=== PATIENT | male | born 1955 | race Caucasian/White ===

== ENCOUNTER 2017-02-28 12:54 | Inpatient (IN) | payer MEDICARE ==
--- NOTE | 2017-02-28 13:10 | ED ---
General Adult HPI - General Chief complaint: Weakness Stated complaint: weakness Time Seen by Provider: 02/28/17 13:02 Source: patient, RN notes reviewed Mode of arrival: EMS Limitations: no limitations - History of Present Illness Initial comments: Patient is a pleasant [age]-year-old male presenting to the emergency department with fatigue and weakness. Patient states he does have a history of Parkinson's however this is worse than normal. Patient states he feels weak all over. Patient states weakness is mostly of the legs. Patient is unable to stand up or walk on his own. Patient is a poor historian and states he wishes his family was here. No fever. No pain. Patient states at times he does get confused. - Related Data Home Medications Medication Instructions Recorded Confirmed ALPRAZolam 1 mg PO BID 04/21/14 02/28/17 Ibuprofen [Motrin] 800 mg PO BID 04/21/14 02/28/17 PARoxetine HCL 40 mg PO DAILY 04/21/14 02/28/17 Propranolol HCl [Propranolol HCl 120 mg PO DAILY 04/21/14 02/28/17 ER] amLODIPine BESYLATE/BENAZEPRIL 1 each PO DAILY 04/21/14 02/28/17 [Amlodipine-Benazepril 5-20 mg] Baclofen [Lioresal] 20 mg PO BID@0600,1430 02/28/17 02/28/17 Carbidopa-Levodopa 25-100 mg 1 tab PO QID 02/28/17 02/28/17 [Sinemet 25-100] Cholecalciferol [Vitamin D3] 5,000 unit PO DAILY 02/28/17 02/28/17 Docusate [Colace] 200 mg PO BID 02/28/17 02/28/17 Donepezil [Aricept] 10 mg PO HS 02/28/17 02/28/17 Fluticasone Nasal [place] [Flonase 2 spr EA NOSTRIL DAILY 02/28/17 02/28/17 Nasal [place]] Deysi Root 550mg 1,650 mg PO DAILY PRN 02/28/17 02/28/17 HYDROcodone/APAP 10-325MG [[place] 1 tab PO QID 02/28/17 02/28/17 10-325] LORazepam [Ativan] 0.5 mg PO Q6H PRN 02/28/17 02/28/17 Lactobacillus Acidophilus 1 tab PO DAILY 02/28/17 02/28/17 [Acidophilus] Loratadine [Claritin] 10 mg PO DAILY 02/28/17 02/28/17 Magnesium Oxide [Mag-Ox] 400 mg PO DAILY 02/28/17 02/28/17 Memantine HCl [Namenda Xr] 28 mg PO DAILY 02/28/17 02/28/17 Montelukast [Singulair] 10 mg PO HS 02/28/17 02/28/17 Multivitamins, Thera [Multivitamin 1 tab PO DAILY 02/28/17 02/28/17 (formulary)] PARoxetine [Paxil] 20 mg PO HS 02/28/17 02/28/17 Papaya [Papaya Enzyme] 4 tab PO DAILY 02/28/17 02/28/17 Polyethylene Glycol 3350 [Miralax] 17 gm PO DAILY 02/28/17 02/28/17 Pyridostigmine [Mestinon] 60 mg PO TID@0700,1100,1600 02/28/17 02/28/17 QUEtiapine [SEROquel] 25 mg PO BID@0600,1430 02/28/17 02/28/17 QUEtiapine [SEROquel] 50 mg PO HS 02/28/17 02/28/17 Triamterene-Hctz 37.5-25Mg 1 cap PO DAILY 02/28/17 02/28/17 [Dyazide 37.5-25 Capsule] Allergies Allergy/AdvReac Type Severity Reaction Status Date / Time Penicillins Allergy Rash/Hives Verified 02/28/17 14:18 Review of Systems ROS Statement: Those systems with pertinent positive or pertinent negative responses have been documented in the HPI. ROS Other: All systems not noted in ROS Statement are negative. Constitutional: Denies: fever Eyes: Denies: eye pain ENT: Denies: ear pain Respiratory: Denies: cough Cardiovascular: Denies: chest pain Endocrine: Reports: fatigue Gastrointestinal: Denies: abdominal pain Genitourinary: Denies: dysuria Musculoskeletal: Reports: back pain (Chronic and unchanged. Patient has spinal stenosis.) Skin: Denies: rash Neurological: Reports: weakness, confusion. Denies: headache Past Medical History Past Medical History: Dementia, Hypertension, Memory Impairment, Prostate Disorder Additional Past Medical History / Comment(s): parkinsons ddd,drop foot r, MS History of Any Multi-Drug Resistant Organisms: None Reported Past Surgical History: Back Surgery, Cholecystectomy, Tonsillectomy Additional Past Surgical History / Comment(s): numerous back surg, Past Anesthesia/Blood Transfusion Reactions: No Reported Reaction Past Psychological History: Depression Smoking Status: Former smoker Past Alcohol Use History: None Reported Past Drug Use History: None Reported General Exam Limitations: no limitations General appearance: alert, in no apparent distress Head exam: Present: atraumatic Eye exam: Present: normal appearance, PERRL ENT exam: Present: normal oropharynx Neck exam: Present: normal inspection Respiratory exam: Present: normal lung sounds bilaterally Cardiovascular Exam: Present: regular rate, normal rhythm Expanded Peripheral pulses: 2+: Radial (R), Radial (L), Posterior Tibialis (R), Posterior Tibialis (L) GI/Abdominal exam: Present: soft. Absent: tenderness Extremities exam: Present: normal inspection. Absent: pedal edema, calf tenderness Neurological exam: Present: alert, altered, CN II-XII intact Expanded Patient oriented to: Present: person, place. Absent: time Motor strength exam: RUE: 4, LUE: 5, RLE: 2/1, LLE: 2/1 Psychiatric exam: Present: flat affect Skin exam: Present: normal color Course Vital Signs 02/28/17 02/28/17 02/28/17 12:56 14:01 15:10 Temperature 98.4 F 98.5 F Pulse Rate 67 67 67 Respiratory 18 20 14 Rate Blood Pressure 135/85 134/85 117/73 O2 Sat by Pulse 94 L 95 95 Oximetry EKG Findings - EKG Comments: EKG Findings:: Normal sinus rhythm 61. HI 160. QRS 140. QTc 444. QTC 446. Left axis. Right bundle branch block. No acute ST change. Medical Decision Making - Medical Decision Making Patient reexamined and resting comfortably in bed. adds additional history stating generalized weakness worse today. She states symptoms are similar to previous urinary tract infection. Patient did have culture done from Tuesday showing good rhythm 100,000 Providencia stuartii . Sensitivity is still pending. This was done at [facility]. Case was discussed with Dr. Grijalva, who will admit his patient. Patient and family were updated on results and plan. - Lab Data Result diagrams: 02/28/17 13:18 02/28/17 13:18 Lab Results 02/28/17 02/28/17 02/28/17 Range/Units 13:18 13:18 13:18 WBC 8.0 (3.8-10.6) k/uL RBC 4.36 (4.30-5.90) m/uL Hgb 13.5 (13.0-17.5) gm/dL Hct 41.6 (39.0-53.0) % MCV 95.2 (80.0-100.0) fL MCH 30.9 (25.0-35.0) pg MCHC 32.5 (31.0-37.0) g/dL RDW 13.9 (11.5-15.5) % Plt Count 473 H (150-450) k/uL Neutrophils % 56 % Lymphocytes % 29 % Monocytes % 7 % Eosinophils % 5 % Basophils % 1 % Neutrophils # 4.5 (1.3-7.7) k/uL Lymphocytes # 2.3 (1.0-4.8) k/uL Monocytes # 0.5 (0-1.0) k/uL Eosinophils # 0.4 (0-0.7) k/uL Basophils # 0.1 (0-0.2) k/uL PT (9.0-12.0) sec INR (<1.2) APTT (22.0-30.0) sec Sodium 143 (137-145) mmol/L Potassium 4.6 (3.5-5.1) mmol/L Chloride 107 (98-107) mmol/L Carbon Dioxide 31 H (22-30) mmol/L Anion Gap 5 mmol/L BUN 21 H (9-20) mg/dL Creatinine 0.66 (0.66-1.25) mg/dL Est GFR (MDRD) Af Amer >60 (>60 ml/min/1.73 sqM) Est GFR (MDRD) Non-Af >60 (>60 ml/min/1.73 sqM) Glucose 88 (74-99) mg/dL Calcium 9.5 (8.4-10.2) mg/dL Phosphorus 4.1 (2.5-4.5) mg/dL Magnesium 2.2 (1.6-2.3) mg/dL Total Bilirubin 0.5 (0.2-1.3) mg/dL AST 45 (17-59) U/L ALT 21 (21-72) U/L Alkaline Phosphatase 64 (38-126) U/L Total Creatine Kinase 54 L (55-170) U/L CK-MB (CK-2) 1.2 (0.0-2.4) ng/mL CK-MB (CK-2) Rel Index 2.2 Troponin I <0.012 (0.000-0.034) ng/mL Total Protein 6.5 (6.3-8.2) g/dL Albumin 3.8 (3.5-5.0) g/dL TSH 1.870 (0.465-4.680) mIU/L Free T4 1.03 (0.78-2.19) ng/dL Free T3 pg/mL 3.3 (2.8-5.3) pg/ml 02/28/17 Range/Units 13:18 WBC (3.8-10.6) k/uL RBC (4.30-5.90) m/uL Hgb (13.0-17.5) gm/dL Hct (39.0-53.0) % MCV (80.0-100.0) fL MCH (25.0-35.0) pg MCHC (31.0-37.0) g/dL RDW (11.5-15.5) % Plt Count (150-450) k/uL Neutrophils % % Lymphocytes % % Monocytes % % Eosinophils % % Basophils % % Neutrophils # (1.3-7.7) k/uL Lymphocytes # (1.0-4.8) k/uL Monocytes # (0-1.0) k/uL Eosinophils # (0-0.7) k/uL Basophils # (0-0.2) k/uL PT 10.8 (9.0-12.0) sec INR 1.1 (<1.2) APTT 27.2 (22.0-30.0) sec Sodium (137-145) mmol/L Potassium (3.5-5.1) mmol/L Chloride (98-107) mmol/L Carbon Dioxide (22-30) mmol/L Anion Gap mmol/L BUN (9-20) mg/dL Creatinine (0.66-1.25) mg/dL Est GFR (MDRD) Af Amer (>60 ml/min/1.73 sqM) Est GFR (MDRD) Non-Af (>60 ml/min/1.73 sqM) Glucose (74-99) mg/dL Calcium (8.4-10.2) mg/dL Phosphorus (2.5-4.5) mg/dL Magnesium (1.6-2.3) mg/dL Total Bilirubin (0.2-1.3) mg/dL AST (17-59) U/L ALT (21-72) U/L Alkaline Phosphatase (38-126) U/L Total Creatine Kinase (55-170) U/L CK-MB (CK-2) (0.0-2.4) ng/mL CK-MB (CK-2) Rel Index Troponin I (0.000-0.034) ng/mL Total Protein (6.3-8.2) g/dL Albumin (3.5-5.0) g/dL TSH (0.465-4.680) mIU/L Free T4 (0.78-2.19) ng/dL Free T3 pg/mL (2.8-5.3) pg/ml - Radiology Data Radiology results: image reviewed (Chest x-ray shows some probable atelectasis. Computed tomography scan the brain shows no acute intercranial process. Mild generalized swelling matter ischemic change.) Disposition Clinical Impression: General weakness, Urinary tract infection Disposition: ADMITTED IP TO THIS [facility] Referrals: Morgan Grijalva DO [Primary Care Provider] - 1-2 days Decision Time: 15:49
[2017-02-28 13:33] LABS: Basophils # (A) 0.1 k/uL (0-0.2); Basophils % (A) 1 %; CH 31.1; CHCM 32.8; Eosinophils # (A) 0.4 k/uL (0-0.7); Eosinophils % (A) 5 %; HCT 41.6 % (39.0-53.0); HDW 2.44; HGB 13.5 gm/dL (13.0-17.5); Luc # (Auto) 0.22; Luc % (Auto) 3; Lymphocytes # (A) 2.3 k/uL (1.0-4.8); Lymphocytes % (A) 29 %; MCH 30.9 pg (25.0-35.0); MCHC 32.5 g/dL (31.0-37.0); MCV 95.2 fL (80.0-100.0); Mean Platelet Volume 7.3; Monocytes # (A) 0.5 k/uL (0-1.0); Monocytes % (A) 7 %; Neutrophils # (A) 4.5 k/uL (1.3-7.7); Neutrophils % (A) 56 %; RBC 4.36 m/uL (4.30-5.90); RDW 13.9 % (11.5-15.5); WBC (Perox) 7.76
[2017-02-28 13:41] LABS: INR 1.1 (<1.2); Partial Thromboplastin Time 27.2 sec (22.0-30.0); Prothrombin Time 10.8 sec (9.0-12.0)
[2017-02-28 13:47] LABS: ALT 21 U/L (21-72); AST 45 U/L (17-59); Alkaline Phosphatase 64 U/L (38-126); Anion Gap 5 mmol/L; Blood Urea Nitrogen 21 mg/dL (9-20); Calcium 9.5 mg/dL (8.4-10.2); Carbon Dioxide 31 mmol/L (22-30); Chloride 107 mmol/L (98-107); Glucose 88 mg/dL (74-99); Magnesium 2.2 mg/dL (1.6-2.3); Non-African American GFR(MDRD) >60 (>60 ml/min/1.73 sqM); Phosphorous 4.1 mg/dL (2.5-4.5); Potassium 4.6 mmol/L (3.5-5.1); Sodium 143 mmol/L (137-145); Total Bilirubin 0.5 mg/dL (0.2-1.3); Total Protein 6.5 g/dL (6.3-8.2)
--- NOTE | 2017-02-28 14:15 | CT ---
EXAMINATION TYPE: CT brain wo con DATE OF EXAM: 02/28/2017 COMPARISON: Previous study dated 04/24/2014 HISTORY: Weakness CT DLP: 558 mGycm Automated exposure control for dose reduction was used. FINDINGS: There is mild, generalized white matter lucency compatible with chronic ischemic change. This was pre sent previously. Central structures are midline. There is no evidence of hydrocephalus. No acute focal lesion, mass ef fect or midline shift is seen. I do not see evidence of intracranial blood. Visualized portions of the paranasal sinuses and mastoids are clear. No depressed skull fracture is s een. IMPRESSION: 1. NO ACUTE INTRACRANIAL ABNORMALITY. 2. MILD, GENERALIZED WHITE MATTER ISCHEMIC CHANGE.
[2017-02-28 14:23] LABS: Creatine Kinase 54 U/L (55-170)
--- NOTE | 2017-02-28 14:31 | XR ---
EXAMINATION TYPE: XR chest 2V DATE OF EXAM: 02/28/2017 COMPARISON: Prior chest x-ray 04/21/2014 HISTORY: Weakness, fatigue, hypertension TECHNIQUE: Frontal and lateral views of the chest are obtained. FINDINGS: There is no pleural effusion, or pneumothorax seen. Minimal patchy basilar density is note d, exam is expiratory. The cardiac silhouette size is stable. The patient is rotated, there are over lying cardiac leads. The osseous structures are intact. IMPRESSION: Probable basilar atelectasis. Follow-up as indicated.
[2017-02-28 14:37] LABS: Creatine Kinase MB 1.2 ng/mL (0.0-2.4); Troponin I <0.012 ng/mL (0.000-0.034)
[2017-02-28] MEDS ORDERED: NALOXONE 0.4 MG/ML 1 ML VIAL IV PRN (15:49)
[2017-02-28] MEDS ORDERED: LEVOFLOXACIN 750MG-D5W PMX 750 MG in DEXTROSE/WATER 1 150ML.BAG IVPB STA (16:03)
[2017-02-28] MEDS: SODIUM CHLORIDE 0.9% 1,000 ML IV SCH (16:07)
--- NOTE | 2017-02-28 16:56 | XR ---
EXAMINATION TYPE: XR foot limited RT DATE OF EXAM: 02/28/2017 CLINICAL HISTORY: Right foot injury today with pain TECHNIQUE: Frontal and lateral images of the right foot are obtained. COMPARISON: Right foot x-ray April 21, 2014 FINDINGS: There is no acute fracture/dislocation evident in the right foot. The Shetty's toe is pres ent. Mild spurring hindfoot and midfoot levels is redemonstrated on lateral view. The overlying soft tissue appears unremarkable. IMPRESSION: There is no acute fracture or dislocation in the right foot.
[2017-02-28 18:05] VITALS: BMI 31.6
[2017-02-28] MEDS ORDERED: GINGER ROOT PO PRN (20:24)
[2017-02-28] MEDS ORDERED: LORazepam 0.5 MG TAB PO PRN (20:24)
[2017-02-28] MEDS ORDERED: PAPAYA PO PRN (20:24)
[2017-02-28] MEDS ORDERED: MONTELUKAST 10 MG TAB PO STA (20:46)
[2017-02-28] MEDS ORDERED: MEMANTINE 10 MG TAB PO STA (20:46)
[2017-02-28] MEDS ORDERED: amLODIPine 5 MG TAB PO STA (20:46)
[2017-02-28] MEDS ORDERED: LISINOPRIL 20 MG TAB PO STA (20:46)
[2017-02-28] MEDS ORDERED: DONEPEZIL 5 MG TAB PO STA (20:46)
[2017-02-28] MEDS ORDERED: HYDROcodone/APAP 10-325MG 1 EACH TAB PO ONE (20:46)
[2017-02-28] MEDS ORDERED: ALPRAZolam 0.5 MG TAB PO STA (20:46)
[2017-02-28] MEDS ORDERED: CARBIDOPA-LEVODOPA 25-100 MG 1 EACH TAB PO STA (20:46)
[2017-02-28] MEDS: QUEtiapine 50 MG TAB PO SCH (21:26)
[2017-03-01] MEDS: SODIUM CHLORIDE 0.9% 1,000 ML IV SCH (06:08)
[2017-03-01] MEDS: HYDROcodone/APAP 10-325MG 1 EACH TAB PO SCH ×4 (06:09→19:11)
[2017-03-01] MEDS: IBUPROFEN 800 MG TAB PO SCH ×2 (06:10→16:41)
[2017-03-01] MEDS: DOCUSATE 100 MG CAP PO SCH (06:12)
[2017-03-01] MEDS: FLUTICASONE 50MCG/SPRAY NASAL 16GM EA NOSTRIL SCH (06:13)
[2017-03-01] MEDS: PARoxetine 20 MG TAB PO SCH ×2 (06:13→16:41)
[2017-03-01] MEDS: MEMANTINE 10 MG TAB PO SCH ×2 (06:14→19:14)
[2017-03-01] MEDS: BACLOFEN 10 MG TAB PO SCH ×3 (06:14→19:11)
[2017-03-01] MEDS: CARBIDOPA-LEVODOPA 25-100 MG 1 EACH TAB PO SCH ×4 (06:15→19:12)
[2017-03-01] MEDS: LACTOBACILLUS ACIDOPH & BULGAR 1 EACH PACKET PO SCH (06:15)
[2017-03-01] MEDS: PYRIDOSTIGMINE 60 MG TAB PO SCH ×3 (06:16→16:41)
[2017-03-01] MEDS: POLYETHYLENE GLYCOL 3350 17 GM POWD.PACK PO SCH (08:10)
[2017-03-01] MEDS: QUEtiapine 25 MG TAB PO SCH (08:10)
[2017-03-01] MEDS: LORazepam 0.5 MG TAB PO SCH ×2 (11:20→14:47)
[2017-03-01] MEDS: LORATADINE 10 MG TAB PO SCH (11:20)
[2017-03-01] MEDS: PROPRANOLOL LA 60 MG CAP.SA.24H PO SCH (14:48)
--- NOTE | 2017-03-01 15:39 | FL ---
Modified barium swallow. HISTORY: Dysphagia. Modified barium swallow was performed with the department of speech pathology. The patient was prese nted with various consistencies of barium. There is no evidence for aspiration or penetration. Full report is to follow from the department of speech pathology. Impression: No aspiration or penetration
[2017-03-01] MEDS: MULTIVITAMINS, THERA 1 EACH TAB PO SCH (16:41)
[2017-03-01] MEDS: LEVOFLOXACIN 750MG-D5W PMX 750 MG in DEXTROSE/WATER 1 150ML.BAG IVPB SCH (16:41)
[2017-03-01] MEDS: ALPRAZolam 0.5 MG TAB PO SCH (19:10)
[2017-03-01] MEDS: MAGNESIUM OXIDE 400 MG TAB PO SCH (19:11)
[2017-03-01] MEDS: DONEPEZIL 10 MG TAB PO SCH (19:11)
[2017-03-01] MEDS: QUEtiapine 50 MG TAB PO SCH (19:12)
[2017-03-01] MEDS: LISINOPRIL 20 MG TAB PO SCH (19:12)
[2017-03-01] MEDS: MONTELUKAST 10 MG TAB PO SCH (19:12)
[2017-03-01] MEDS: CHOLECALCIFEROL 1,000 UNIT TAB PO SCH (19:13)
[2017-03-01] MEDS: amLODIPine 5 MG TAB PO SCH (19:13)
--- NOTE | 2017-03-01 23:09 | P.CNNES ---
History of Present Illness Consult date: 03/01/17 Reason for Consult: Patient admitted with urinary tract infection and generalized weakness. Review of Systems Constitutional: Denies chills, Denies fever Eyes: denies blurred vision, denies pain Ears, nose, mouth and throat: Reports as per HPI Cardiovascular: Denies chest pain, Denies shortness of breath Respiratory: Denies cough Gastrointestinal: Denies abdominal pain, Denies diarrhea, Denies nausea, Denies vomiting Musculoskeletal: Denies myalgias Integumentary: Denies pruritus, Denies rash Neurological: Reports aphasia, Reports change in speech, Reports gait dysfunction, Reports memory loss, Reports spasticity, Denies numbness, Denies weakness Psychiatric: Reports confusion, Reports memory loss, Denies anxiety, Denies depression Endocrine: Denies fatigue, Denies weight change Past Medical History Past Medical History: Dementia, Hypertension, Memory Impairment, Prostate Disorder Additional Past Medical History / Comment(s): parkinsons,ddd,drop foot r, Myasthenia Gravis History of Any Multi-Drug Resistant Organisms: None Reported Date of last positivie culture/infection: None MDRO Source:: None Past Surgical History: Back Surgery, Cholecystectomy, Tonsillectomy Additional Past Surgical History / Comment(s): numerous back surg, urethral surgery Past Anesthesia/Blood Transfusion Reactions: No Reported Reaction Past Psychological History: Anxiety, Depression Additional Psychological History / Comment(s): Hallucinations Smoking Status: Former smoker Past Alcohol Use History: None Reported Past Drug Use History: None Reported Medications and Allergies Home Medications Medication Instructions Recorded Confirmed Type ALPRAZolam 1.5 mg PO HS@192904/21/14 02/28/17 History Ibuprofen [Motrin] 800 mg PO BID@0600,1600 04/21/14 02/28/17 History PARoxetine HCL 40 mg PO DAILY@0600 04/21/14 02/28/17 History Propranolol HCl [Propranolol HCl 120 mg PO DAILY@1430 04/21/14 02/28/17 History ER] amLODIPine BESYLATE/BENAZEPRIL 1 each PO HS@192904/21/14 02/28/17 History [Amlodipine-Benazepril 5-20 mg] Baclofen [Lioresal] 20 mg PO TID@0600,1430,1930 02/28/17 02/28/17 History Carbidopa-Levodopa 25-100 mg 1 tab PO QID@06,11,16,192902/28/17 02/28/17 History [Sinemet 25-100] Cholecalciferol [Vitamin D3] 5,000 unit PO HS@192902/28/17 02/28/17 History Docusate [Colace] 200 mg PO DAILY@59902/28/17 02/28/17 History Donepezil [Aricept] 10 mg PO HS@192902/28/17 02/28/17 History Fluticasone Nasal [place] [Flonase 2 spr EA NOSTRIL DAILY@59902/28/17 02/28/17 History Nasal [place]] Deysi Root 550mg 1,650 mg PO DAILY PRN 02/28/17 02/28/17 History HYDROcodone/APAP 10-325MG [[place] 1 tab PO QID@06,11,1430,192902/28/17 02/28/17 History 10-325] LORazepam [Ativan] 0.5 mg PO BID@1100,0 02/28/17 02/28/17 History LORazepam [Ativan] 0.5 mg PO Q6H PRN 02/28/17 02/28/17 History Lactobacillus Acidophilus 1 tab PO DAILY@59902/28/17 02/28/17 History [Acidophilus] Loratadine [Claritin] 10 mg PO DAILY@1100 02/28/17 02/28/17 History Magnesium Oxide [Mag-Ox] 400 mg PO HS@192902/28/17 02/28/17 History Memantine HCl [Namenda Xr] 28 mg PO DAILY@59902/28/17 02/28/17 History Montelukast [Singulair] 10 mg PO HS@192902/28/17 02/28/17 History Multivitamins, Thera [Multivitamin 1 tab PO DAILY@159902/28/17 02/28/17 History (formulary)] PARoxetine [Paxil] 20 mg PO HS@159902/28/17 02/28/17 History Papaya [Papaya Enzyme] 4 tab PO DAILY PRN 02/28/17 02/28/17 History Polyethylene Glycol 3350 [Miralax] 17 gm PO DAILY 02/28/17 02/28/17 History Pyridostigmine [Mestinon] 60 mg PO TID@0600,1100,1600 02/28/17 02/28/17 History QUEtiapine [SEROquel] 25 mg PO DAILY 02/28/17 02/28/17 History QUEtiapine [SEROquel] 50 mg PO HS 02/28/17 02/28/17 History Allergies Allergy/AdvReac Type Severity Reaction Status Date / Time Penicillins Allergy Rash/Hives Verified 02/28/17 14:18 Physical Examination - Vital Signs Vital Signs: Vital Signs Temp Pulse Resp BP Pulse Ox 03/01/17 20:09 92 L 03/01/17 15:00 97.4 F L 100 16 130/85 95 03/01/17 07:00 98.2 F 70 16 105/68 93 L 03/01/17 00:00 77 18 02/28/17 23:00 97.9 F 77 18 142/83 91 L Intake and Output 03/01/17 03/01/17 03/01/17 06:59 14:59 22:59 Intake Total 240 Balance 240 Intake: Oral 240 Other: Voiding Method Toilet Diaper Diaper Diaper Incontinent Incontinent # Voids 2 2 Weight 108.862 kg Patient Weight 03/02/17 06:59 Weight 108.862 kg - Constitutional General appearance: average body habitus, cooperative - EENT EENT: PERRL, mucous membranes moist - Respiratory Respiratory: lungs clear, normal breath sounds - Cardiovascular Cardiovascular: regular rate, normal S1, normal S2 Extremities: no peripheral edema bilaterally - Gastrointestinal Gastrointestinal: normoactive bowel sounds - Integumentary Integumentary: normal - Neurologic Cranial nerve examination: PERRL, EOMI, VFF, V1/V2/V3 grossly intact, face symmetric, tongue midline, intact gag reflex, intact corneal reflex, normal palatal elevation Speech examination: intact Sensorimotor examination: intact, other (Patient has cogwheel rigidity in both upper extremities.) Motor examination - right side: 3/5: biceps, triceps, wrist flexion, wrist extension, screw supervisor, hip flexors, knee extensors, dorsiflexion, toe extension (EHL) , plantarflexion Motor examination - left side: 3/5: biceps, triceps, wrist flexion, wrist extension, screw supervisor, hip flexors, knee extensors, dorsiflexion, toe extension (EHL) , plantarflexion Detailed sensory examination: intact Reflex and gait examination: intact Reflexes: 1+: ankle, bicep, knee, tricep - Musculoskeletal Musculoskeletal: no pain - Psychiatric Psychiatric: mood/affect appropriate, cooperative Results - Laboratory Findings CBC and BMP: 02/28/17 13:18 02/28/17 13:18 Abnormal Lab Findings: Abnormal Labs 02/28/17 02/28/17 02/28/17 13:18 13:18 13:18 Plt Count 473 H Carbon Dioxide 31 H BUN 21 H Total Creatine Kinase 54 L Assessment and Plan (1) Parkinsons disease Status: Acute Code(s): G20 - PARKINSON'S DISEASE (2) Recurrent urinary tract infection Status: Acute Code(s): N39.0 - URINARY TRACT INFECTION, SITE NOT SPECIFIED (3) Parkinson's disease dementia Status: Acute Code(s): G20 - PARKINSON'S DISEASE; F02.80 - DEMENTIA IN OTH DISEASES CLASSD ELSWHR W/O BEHAVRL DISTURB (4) Parkinson's disease, Lewy body Status: Acute Code(s): G31.83 - DEMENTIA WITH LEWY BODIES (5) Myasthenia gravis Status: Acute Code(s): G70.00 - MYASTHENIA GRAVIS WITHOUT (ACUTE) EXACERBATION (6) General weakness Status: Acute Code(s): R53.1 - WEAKNESS (7) Hallucination Status: Acute Code(s): R44.3 - HALLUCINATIONS, UNSPECIFIED Plan: This patient is a 61-year-old right-handed white male who was brought into the emergency room with symptoms of recurrent urinary tract infection and generalized weakness. Patient has a complex past medical history which includes history of Parkinson's disease, Parkinson's dementia, and myasthenia gravis. According to his he has been very weak for the past 7 weeks at home. He has been unable to ambulate due to generalized weakness. He does have a history of myasthenia gravis mostly affecting his ocular muscles. He is on treatment for both his Parkinson's disease and is myasthenia gravis. He was evaluated at the movement disorder clinic at [facility] 5 years ago where his diagnosis was made. He has not had follow-up there for over a year. The patient does answer some simple questions. According to the he has been very weak for the past 7 weeks. He has had 3 urinary tract infections. This may worsen his Parkinson's condition due to the sepsis. He does ambulate at home with the use of a walker but has been bedbound due to worsening generalized weakness. The patient is taking Mestinon on a regular basis for his myasthenia gravis. He denies any episodes of double vision. He has been on Sinemet 25/100 one tablet 4 times a day. He is also on combination of Aricept and Namenda for treatment of his Parkinson's dementia. The patient has been having new symptoms of hallucinations over the last several years. He is taking Seroquel for this. He also recently was switched from Flexeril to baclofen. This is helped with some of his rigidity. He has not had any major falls according to the . He would benefit from a urology consultation for evaluation of his recurrent UTI. We would also recommend a consultation with Dr. La for possible inpatient rehab placement for this patient. The is in agreement. We will continue close neurological follow-up for this patient. His computed tomography scan of the brain revealed no acute intracranial abnormality. There was generalized white matter ischemic changes. We will continue close neurological follow-up of this patient during this admission. Would recommend aggressive treatment of the underlying urinary tract infection. His overall prognosis at this time remains guarded. Time with Patient: Greater than 30
[2017-03-02] MEDS: FLUTICASONE 50MCG/SPRAY NASAL 16GM EA NOSTRIL SCH (06:09)
[2017-03-02] MEDS: BACLOFEN 10 MG TAB PO SCH ×3 (06:10→19:59)
[2017-03-02] MEDS: IBUPROFEN 800 MG TAB PO SCH ×2 (06:10→16:37)
[2017-03-02] MEDS: PARoxetine 20 MG TAB PO SCH ×2 (06:10→16:37)
[2017-03-02] MEDS: CARBIDOPA-LEVODOPA 25-100 MG 1 EACH TAB PO SCH ×4 (06:10→19:59)
[2017-03-02] MEDS: HYDROcodone/APAP 10-325MG 1 EACH TAB PO SCH ×4 (06:10→20:00)
[2017-03-02] MEDS: PYRIDOSTIGMINE 60 MG TAB PO SCH ×3 (06:10→16:37)
[2017-03-02] MEDS: MEMANTINE 10 MG TAB PO SCH ×2 (06:10→19:59)
[2017-03-02] MEDS: DOCUSATE 100 MG CAP PO SCH (06:11)
[2017-03-02] MEDS: SODIUM CHLORIDE 0.9% 1,000 ML IV SCH ×2 (06:48→07:50)
[2017-03-02] MEDS: LACTOBACILLUS ACIDOPH & BULGAR 1 EACH PACKET PO SCH (07:47)
[2017-03-02] MEDS: POLYETHYLENE GLYCOL 3350 17 GM POWD.PACK PO SCH (07:48)
[2017-03-02] MEDS: QUEtiapine 25 MG TAB PO SCH (07:50)
--- NOTE | 2017-03-02 10:27 | P.CONS ---
History of Present Illness - Chief Complaint Medical debility - History of Present Illness I had the opportunity to see patient for inpatient rehab consultation with regard to medical debility. He is a long-standing history of Parkinson and myasthenia gravis. Has been dependent on for care. Admitted apparently with exacerbation of same. Seen in consultation by Dr. Rosalva Garcia. Foot x-ray negative or no active disease. Modified barium swallow negative for aspiration. PT reports two-person assistance for functional ability. OT reports 3 person assistance for bathing and dressing. Unable to toileting or transfers. Previous functional history as elicited from patient: 61-year-old right-handed male who is and lives in one floor home with . Retired. History of smoking and drinking but doesn't do either currently. Requires physical assistance for bathing dressing and wheelchair mobility. does the cooking , laundry, driving. Family history both parents smokers. Review of Systems Review of systems: ENT: Denies sneezes or discharge. Eyes: Denies discharge or photophobia. Cardiac: Denies chest pain or palpitation. Pulmonary: Denies cough or shortness of breath. Gastrointestinal: Denies nausea, emesis, constipation, diarrhea. Genitourinary: Denies discharge or frequency. Musculoskeletal: Long-standing generalized muscle discomfort including back and legs. At least mild edema forelegs and feet. Neurologic: Long-standing generalized weakness, more so lowers. Endocrine: Denies shakes or sweats. Oncology: Denies cancers. Dermatologic: Denies rash, itching, pruritus. ALLERGY/immunology: Denies sneezes, rashes. Past Medical History Past Medical History: Dementia, Hypertension, Memory Impairment, Prostate Disorder Additional Past Medical History / Comment(s): parkinsons,ddd,drop foot r, Myasthenia Gravis History of Any Multi-Drug Resistant Organisms: None Reported Year Discovered:: None MDRO Source:: None Past Surgical History: Back Surgery, Cholecystectomy, Tonsillectomy Additional Past Surgical History / Comment(s): numerous back surg, urethral surgery Past Anesthesia/Blood Transfusion Reactions: No Reported Reaction Past Psychological History: Anxiety, Depression Additional Psychological History / Comment(s): Hallucinations Smoking Status: Former smoker Past Alcohol Use History: None Reported Past Drug Use History: None Reported Medications and Allergies Home Medications Medication Instructions Recorded Confirmed Type ALPRAZolam 1.5 mg PO HS@1930 04/21/14 07/24/17 History Ibuprofen [Motrin] 800 mg PO BID@0600,1600 04/21/14 02/28/17 History PARoxetine HCL 40 mg PO DAILY@59904/21/14 02/28/17 History Propranolol HCl [Propranolol HCl 120 mg PO DAILY@142904/21/14 02/28/17 History ER] amLODIPine BESYLATE/BENAZEPRIL 1 each PO HS@192904/21/14 02/28/17 History [Amlodipine-Benazepril 5-20 mg] Baclofen [Lioresal] 20 mg PO TID@0600,1430,192902/28/17 02/28/17 History Carbidopa-Levodopa 25-100 mg 1 tab PO QID@06,,16,192902/28/17 02/28/17 History [Sinemet 25-100] Cholecalciferol [Vitamin D3] 5,000 unit PO HS@192902/28/17 02/28/17 History Docusate [Colace] 200 mg PO DAILY@59902/28/17 02/28/17 History Donepezil [Aricept] 10 mg PO HS@192902/28/17 02/28/17 History Fluticasone Nasal [place] [Flonase 2 spr EA NOSTRIL DAILY@59902/28/17 02/28/17 History Nasal [place]] Deysi Root 550mg 1,650 mg PO DAILY PRN 02/28/17 02/28/17 History HYDROcodone/APAP 10-325MG [[place] 1 tab PO QID@06,11,1430,192902/28/17 02/28/17 History 10-325] LORazepam [Ativan] 0.5 mg PO BID@1100,142902/28/17 02/28/17 History LORazepam [Ativan] 0.5 mg PO Q6H PRN 02/28/17 02/28/17 History Lactobacillus Acidophilus 1 tab PO DAILY@59902/28/17 02/28/17 History [Acidophilus] Loratadine [Claritin] 10 mg PO DAILY@1100 02/28/17 02/28/17 History Magnesium Oxide [Mag-Ox] 400 mg PO HS@192902/28/17 02/28/17 History Memantine HCl [Namenda Xr] 28 mg PO DAILY@0600 02/28/17 02/28/17 History Montelukast [Singulair] 10 mg PO HS@1930 02/28/17 02/28/17 History Multivitamins, Thera [Multivitamin 1 tab PO DAILY@1600 02/28/17 02/28/17 History (formulary)] PARoxetine [Paxil] 20 mg PO HS@1600 02/28/17 02/28/17 History Papaya [Papaya Enzyme] 4 tab PO DAILY PRN 02/28/17 02/28/17 History Polyethylene Glycol 3350 [Miralax] 17 gm PO DAILY 02/28/17 02/28/17 History Pyridostigmine [Mestinon] 60 mg PO TID@0600,1100,1600 02/28/17 02/28/17 History QUEtiapine [SEROquel] 25 mg PO DAILY 02/28/17 02/28/17 History QUEtiapine [SEROquel] 50 mg PO HS 02/28/17 02/28/17 History Allergies Allergy/AdvReac Type Severity Reaction Status Date / Time Penicillins Allergy Rash/Hives Verified 02/28/17 14:18 Physical Exam Vitals: Vital Signs Temp Pulse Resp BP Pulse Ox 03/02/17 07:00 98.2 F 64 16 116/69 93 L 03/02/17 06:55 16 03/01/17 23:59 16 03/01/17 23:00 98.5 F 88 16 181/85 99 03/01/17 20:09 92 L 03/01/17 15:00 97.4 F L 100 16 130/85 95 Intake and Output 03/01/17 03/02/17 03/02/17 22:59 06:59 14:59 Intake Total 600 200 Balance 600 200 Intake: Intake, IV Titration 600 Amount Sodium Chloride 0.9% 1, 600 000 ml @ 75 mls/hr IV . [id number] [facility] Rx#:[id number] Oral 200 Other: Voiding Method Diaper Diaper Incontinent Incontinent # Voids 1 1 Weight 108.862 kg Patient Weight 03/03/17 06:59 Weight 108.862 kg Skin: Shiny, atrophic, turgor. General: Overweight to obese and comfortable appearance. Head: Normocephalic, atraumatic. Eyes: Symmetric. Pupils equal round. Ears: Symmetric. Hearing within normal limits. Mouth: Clear. Neck: Supple. Carotid without bruit. Cardiac: Regular rate and rhythm. Lungs: Clear anteriorly and posteriorly. Abdomen: Soft active nontender. Extremities: Normal tone. Neurological: Mental status: Alert, cooperative, pleasant. Cranial nerves: Symmetric facial tone and trapezius. Motor: Elevate Left Arm off the Bed. Elevates Right Forearm off of Bed. Poor to No Movement Legs. Sensation: Intact throughout. DTRs: Absent throughout. Mobility: Did not attempt to sit or stand on [place] as would require 2-3 person assist. Results CBC & Chem 7: 02/28/17 13:18 02/28/17 13:18 Labs: Microbiology - Last 24 Hours (Table) 02/28/17 14:09 Urine Culture - Final Urine,Catheterized Assessment and Plan (1) Parkinson's disease dementia Status: Acute Plan: Impression: 1. Medical debility. 2. Parkinson's associated weakness and dementia. 3. Myasthenia gravis. 4. Hypertension. Comments and plan: At this time PT and OT are ongoing. Currently requires 2-3 person assistance for basic self-care and functional mobility. This is long- standing. Do not believe that inpatient rehab can improve on this. Discussed with nurse that patient not appropriate at this time for inpatient rehab.
[2017-03-02] MEDS: LORazepam 0.5 MG TAB PO SCH ×2 (11:21→15:32)
[2017-03-02] MEDS: LORATADINE 10 MG TAB PO SCH (11:21)
--- NOTE | 2017-03-02 12:48 | P.GSCN ---
History of Present Illness Consult date: 03/02/17 History of present illness: Patient is a pleasant 61-year-old gentleman with quite advanced Parkinson's disease and myasthenia gravis that ended up in the hospital with increasing weakness and a urine infection. His urine looked infected however his culture is negative. When asking the patient thought he was on antibiotics before he came in the hospital. The patient does have a history of incomplete bladder emptying. He states that he has recurrent infection. He has incontinence into a diaper as he is immobilized. He voids 2-3 times per day. He denies blood in the urine. He denies kidney stones. He has not had any x-rays. His previous urologic problems include urethral stricture disease for which he has had direct vision internal urethrotomy as well as repair at [facility]. I'm not seen him over 2 years. Review of Systems - Constitutional Reports anorexia, Reports malaise - Genitourinary Reports incontinence, Reports urinary frequency, Reports urinary hesitancy - Musculoskeletal Reports as per HPI Past Medical History Past Medical History: Dementia, Hypertension, Memory Impairment, Prostate Disorder Additional Past Medical History / Comment(s): parkinsons,ddd,drop foot r, Myasthenia Gravis History of Any Multi-Drug Resistant Organisms: None Reported Year Discovered:: None MDRO Source:: None Past Surgical History: Back Surgery, Cholecystectomy, Tonsillectomy Additional Past Surgical History / Comment(s): numerous back surg, urethral surgery Past Anesthesia/Blood Transfusion Reactions: No Reported Reaction Past Psychological History: Anxiety, Depression Additional Psychological History / Comment(s): Hallucinations Smoking Status: Former smoker Past Alcohol Use History: None Reported Past Drug Use History: None Reported Medications and Allergies Home Medications Medication Instructions Recorded Confirmed Type ALPRAZolam 1.5 mg PO HS@192904/21/14 02/28/17 History Ibuprofen [Motrin] 800 mg PO BID@0600,1600 04/21/14 02/28/17 History PARoxetine HCL 40 mg PO DAILY@0600 04/21/14 02/28/17 History Propranolol HCl [Propranolol HCl 120 mg PO DAILY@1430 04/21/14 02/28/17 History ER] amLODIPine BESYLATE/BENAZEPRIL 1 each PO HS@192904/21/14 02/28/17 History [Amlodipine-Benazepril 5-20 mg] Baclofen [Lioresal] 20 mg PO TID@0600,1430,192902/28/17 02/28/17 History Carbidopa-Levodopa 25-100 mg 1 tab PO QID@06,,16,192902/28/17 02/28/17 History [Sinemet 25-100] Cholecalciferol [Vitamin D3] 5,000 unit PO HS@192902/28/17 02/28/17 History Docusate [Colace] 200 mg PO DAILY@59902/28/17 02/28/17 History Donepezil [Aricept] 10 mg PO HS@192902/28/17 02/28/17 History Fluticasone Nasal [place] [Flonase 2 spr EA NOSTRIL DAILY@59902/28/17 02/28/17 History Nasal [place]] Deysi Root 550mg 1,650 mg PO DAILY PRN 02/28/17 02/28/17 History HYDROcodone/APAP 10-325MG [[place] 1 tab PO QID@06,11,1429,192902/28/17 02/28/17 History 10-325] LORazepam [Ativan] 0.5 mg PO BID@1100,142902/28/17 02/28/17 History LORazepam [Ativan] 0.5 mg PO Q6H PRN 02/28/17 02/28/17 History Lactobacillus Acidophilus 1 tab PO DAILY@59902/28/17 02/28/17 History [Acidophilus] Loratadine [Claritin] 10 mg PO DAILY@1100 02/28/17 02/28/17 History Magnesium Oxide [Mag-Ox] 400 mg PO HS@192902/28/17 02/28/17 History Memantine HCl [Namenda Xr] 28 mg PO DAILY@59902/28/17 02/28/17 History Montelukast [Singulair] 10 mg PO HS@192902/28/17 02/28/17 History Multivitamins, Thera [Multivitamin 1 tab PO DAILY@159902/28/17 02/28/17 History (formulary)] PARoxetine [Paxil] 20 mg PO HS@159902/28/17 02/28/17 History Papaya [Papaya Enzyme] 4 tab PO DAILY PRN 02/28/17 02/28/17 History Polyethylene Glycol 3350 [Miralax] 17 gm PO DAILY 02/28/17 02/28/17 History Pyridostigmine [Mestinon] 60 mg PO TID@0600,1100,1600 02/28/17 02/28/17 History QUEtiapine [SEROquel] 25 mg PO DAILY 02/28/17 02/28/17 History QUEtiapine [SEROquel] 50 mg PO HS 02/28/17 02/28/17 History Allergies Allergy/AdvReac Type Severity Reaction Status Date / Time Penicillins Allergy Rash/Hives Verified 02/28/17 14:18 Surgical - Exam Vital Signs Temp Pulse Resp BP Pulse Ox 98.4 F 67 18 135/85 94 L 02/28/17 12:56 02/28/17 12:56 02/28/17 12:56 02/28/17 12:56 02/28/17 12:56 - General well developed, well nourished, chronically ill - Eyes PERRL - ENT no hearing loss - Neck trachea midline - Respiratory normal expansion, normal respiratory effort - Cardiovascular Rhythm: regular - Abdomen Abdomen: soft, non tender - Genitourinary The penis is normal. He wears a diaper with some urine in the diaper. Testes epididymis scrotum are unremarkable. - Integumentary no rash, no growths - Musculoskeletal The patient is bedridden and cannot move well his lower extremities. His speech is slow and hesitant consistent with advanced Parkinson's - Psychiatric oriented to time, oriented to person, oriented to place Results - Labs 02/28/17 13:18 02/28/17 13:18 Microbiology - Last 24 Hours (Table) 02/28/17 14:09 Urine Culture - Final Urine,Catheterized Assessment and Plan Plan: Impression: Progressive Parkinson's disease, with generalized weakness. Probable urinary infection. History of urethral stricture disease. History of incomplete bladder emptying. History of incontinence due to immobility. Recommendations: I will get a KUB, a renal ultrasound to make sure there is no obstruction and/or hydronephrosis. I will check a postvoid residual see how he is emptying. I suspect the negative culture could be due to the fact that he is on antibiotics. Pending the results of these tests as a further recommendations.
--- NOTE | 2017-03-02 15:11 | US ---
EXAMINATION TYPE: US kidneys/renal and bladder DATE OF EXAM: 03/02/2017 COMPARISON: NONE CLINICAL HISTORY: Urine infection. EXAM MEASUREMENTS: Right Kidney: 10.0 x 5.1 x 5.4 cm Left Kidney: 9.2 x 5.1 x 5.2 cm Confused patient unable to move or cooperate with examiner in any way, technically difficult, limited study. Right Kidney: No hydronephrosis or masses seen Left Kidney: No hydronephrosis or masses seen Bladder: wnl There is no evidence for hydronephrosis at this point in time. No nephrolithiasis is seen. No leo s are identified. The urinary bladder is anechoic. Bilateral ureteral jets are seen. IMPRESSION: No significant abnormality seen.
[2017-03-02] MEDS: PROPRANOLOL LA 60 MG CAP.SA.24H PO SCH (15:32)
--- NOTE | 2017-03-02 15:42 | XR ---
EXAMINATION TYPE: XR KUB , 2 VIEWS DATE OF EXAM ORDERED: 03/02/2017 HISTORY: Urine infection. COMPARISON: None. FINDINGS: There is contrast within the colon from previous barium study. There is degenerative change in the lower lumbar spine. The abdominal gas pattern is otherwise normal . There is no evidence of obstruction or free air. There is a phlebolith in the right hemipelvis. The right femoral head is nonspherical. There is a small "bump" on the femoral neck. IMPRESSION: 1. NO ACUTE INTRA-ABDOMINAL ABNORMALITY. 2. PLEASE CORRELATE CLINICALLY FOR FEMOROACETABULAR IMPINGEMENT SYNDROME.
[2017-03-02] MEDS: LEVOFLOXACIN 750MG-D5W PMX 750 MG in DEXTROSE/WATER 1 150ML.BAG IVPB SCH (16:34)
[2017-03-02] MEDS: MULTIVITAMINS, THERA 1 EACH TAB PO SCH (16:37)
--- NOTE | 2017-03-02 18:49 | HP ---
The patient is a pleasant 61 -year-old white male who was admitted to the hospital after having acute mental status changes with increasing weakness, fatigue and not able to ambulate. The patient was also admitted to the hospital with a urinary tract infection. He has been progressively having problems over the past month and worsening over the past week. His said that he had a series of urinary tract infections which has been treated symptomatically. This would be his third episode. REVIEW OF SYSTEMS: Denies any fevers or chills. ENT: Denies any blurred vision. Denies any shortness of breath respiratory aguero. Denies any cough. Admits to some increased fatigue especially with chewing. Denies choking but states he does not have the appetite and strength to chew. Musculoskeletal: Admits to weakness. Lost the ability to ambulate and to transfer. He was pretty much wheelchair bound. However, he was able to transfer from wheelchair to bed and bed to cough, etc. Neurological: reports problem with gait. Reports problems with memory. Numbness and pain in extremities. Difficulty speaking. Past medical history is significant for Parkinsons, Dementia, hypertension, and enlarged prostate, myasthenia gravis, foot drop, degenerative disc disease, osteoarthritis, anxiety disorder. Past surgical history: Back surgery, cholecystectomy, tonsils and adenoids and urethral surgery. Psychosocial: Positive for anxiety and depression. History of hallucinations. None recently. SOCIAL HISTORY: Former smoker. Denies any drugs or alcohol abuse. MEDICATIONS: 1. Alprazolam. 2. Motrin. 3. Propranolol. 4. Benazepril. 5. Sinemet. 6. Vitamin D3. 7. Colace. 8. Aricept. 9. Flonase. 10. Deysi root. 11. Hydrocodone. 12. Ativan. 13. Acidophilus. 14. Claritin. 15. Magnesium oxide. 16. Namenda. 17. Singulair. 18. Multivitamin. 19. Paxil. 20. Miralax. 21. Mestinon 60 mg t.i.d. 22. Seroquel. ALLERGIES: PENICILLIN. PHYSICAL EXAMINATION: General: he is alert. He does answer questions. He is low speaking. He is swallowing food this morning. HEENT: Head is Normocephalic, atraumatic. Neck is supple. No JVD. Heart regular rate and rhythm. Voice is tremulous. Parkinsonian like movements. Lungs clear to auscultation. Abdomen soft, nontender. No rebound, rigidity or guarding. Extremities: Weak but intact bilateral. Skin is without rashes. Facial muscles are intact. Tongue is midline without shift. Motor exam upper extremity weak +3 out of 5. Lower extremity weak +3 out of 5. Reflexes are intact. Psychiatric. He still has a sense of humor. Very flat affect. Expressionless features. IMPRESSION: 1. Acute urinary tract infection. 2. Parkinsons exacerbation disease. 3. Dementia. 4. Myasthenia gravis. 5. Generalized weakness and gait dysfunction. PLAN: The patient full neurological workup, we will culture the urine. Put on antibiotics for now until culture comes back. MTDD
--- NOTE | 2017-03-02 19:24 | DS ---
ADMISSION DATE: 02/28/2017 DISCHARGE DATE: 03/02/2017 DISCHARGE/TRANSFER SUMMARY DISCHARGE MEDICATIONS include: 1. Lotrel 5/20 one at bedtime. 2. Propranolol 120 mg daily. 3. Motrin 800 mg b.i.d. 4. Alprazolam 1.5 mg at bedtime. 5. Paxil 40 mg daily. 6. [place] 10/325 one daily. 7. Seroquel 25 one daily. 8. Baclofen 20 t.i.d. 9. Sinemet 20/100 one q.i.d. 10. Vitamin D one daily. 11. Colace 200 at bedtime. 12. Aricept 10 daily. 13. Flonase 2 sprays each nostril at night. 14. Claritin 10 mg daily. 15. Ativan 0.5 q.6 p.r.n. anxiety 16. Magnesium oxide 400 mg daily. 17. Namenda XR 28 mg daily. 18. Singulair 10 mg daily. 19. Multivitamin 1 daily. 20. Paxil 20 mg at bedtime. 21. Seroquel 50 at bedtime. 22. Mestinon 60 mg t.i.d. 23. Miralax 17 grams p.o. daily. HOSPITAL COURSE: This patient is a pleasantly debilitated 61-year-old white male who was admitted for generalized weakness and apparent urinary tract infection. However, his urine culture on admission came back negative. He has been having troubles with assistance -- transferring, bathing, etc. He is unable to maintain this currently. The patient is required 2-person maximum assist with decreased functional mobility. Patient underwent swallow evaluation , which showed no evidence of aspiration and no problems with actual swallowing mechanism. I think most of the component of swallowing is due to muscle fatigue. He also was seen by Neurology, who felt patient's condition was exacerbation of his pre-existing conditions myasthenia gravis, Parkinson's and Parkinson's dementia. Medication consultation by rehab, Dr. Kevon La, said that because of his maximum assist and his progressive disease, he would not be a candidate for [facility] inpatient rehabilitation program. He also had a urology consultation, who recommended patient undergo a KUB, renal ultrasound and to check a post-void residual to see how the patient is emptying. I have seen him once since December for urinary tract infection. He was treated subsequently after that for recurring or not fully treated infection, but it seems like it has resolved at this point. Therefore recommendations to transfer to rehab will be put on hold. He will most likely be transferred to an extended-care facility for longer-term care, and this process is in progress. FINAL DIAGNOSES: 1. Progressive Parkinson's disease with generalized weakness. 2. Resolved urinary tract infection with most likely urethral obstruction and incomplete bladder emptying. 3. Parkinson's dementia. 4. Myasthenia gravis. 5. Degenerative disc disease. 6. Anxiety disorder. Will continue to follow patient's progress and hope he improves. [facility]ITALRosalva
[2017-03-02] MEDS: CHOLECALCIFEROL 1,000 UNIT TAB PO SCH (19:58)
[2017-03-02] MEDS: QUEtiapine 50 MG TAB PO SCH (19:59)
[2017-03-02] MEDS: DONEPEZIL 10 MG TAB PO SCH (19:59)
[2017-03-02] MEDS: ALPRAZolam 0.5 MG TAB PO SCH (19:59)
[2017-03-02] MEDS: MONTELUKAST 10 MG TAB PO SCH (19:59)
[2017-03-02] MEDS: MAGNESIUM OXIDE 400 MG TAB PO SCH (20:00)
[2017-03-02] MEDS: LISINOPRIL 20 MG TAB PO SCH (20:00)
[2017-03-02] MEDS: amLODIPine 5 MG TAB PO SCH (20:00)
--- NOTE | 2017-03-02 22:24 | P.PN ---
Subjective This patient is a 61-year-old male who has a known history of Parkinson's disease and myasthenia gravis. He was admitted with increasing weakness secondary to urinary tract infections. He was seen by neurology today recommended a KUB and renal ultrasound to be done. Postvoid residuals are to be checked as well. We will await further recommendations from urology. Patient continues to do about the same in terms of his Parkinson's condition. We did discuss with the yesterday the possibility of Lewy body dementia as associated with the Parkinson's condition. He is being evaluated for possible transfer to the inpatient rehab unit at [facility]. We will continue close neurological follow-up with the patient. Objective - Vital Signs Vital signs: Vital Signs Temp 98.2 F 03/02/17 15:00 Pulse 64 03/02/17 15:42 Resp 16 03/02/17 15:42 BP 139/90 03/02/17 15:00 Pulse Ox 94 L 03/02/17 15:00 Intake & Output 03/02/17 03/02/17 03/03/17 06:59 18:59 06:59 Intake Total 600 815 Balance 600 815 Weight 108.862 kg Intake: Intake, IV Titration 600 375 Amount Sodium Chloride 0.9% 1, 600 375 000 ml @ 75 mls/hr IV . [id number] [facility] Rx#:[id number] Oral 440 Other: Voiding Method Diaper Diaper Incontinent Incontinent # Voids 1 2 - Exam Physical examination: PHYSICAL EXAMINATION: Patient is resting comfortably in bed. VITAL SIGNS: Blood pressure is [139/90]. Heart rate is [77]. Respiration is [16] . Temperature is [98.2]. HEENT: Head is atraumatic, neck is supple, there were no carotid bruits. CHEST: Lungs are clear to auscultation and percussion. CARDIAC: S1, S2 normal rate and rhythm. There is no murmur. ABDOMEN: Soft and nontender. Bowel sounds are present. EXTREMITIES: There is no pedal edema. Peripheral pulses are present. Neurological examination: Patient's neurological examination is unchanged from yesterday. - Labs CBC & Chem 7: 02/28/17 13:18 02/28/17 13:18 Assessment and Plan (1) Parkinsons disease Status: Acute Code(s): G20 - PARKINSON'S DISEASE (2) Recurrent urinary tract infection Status: Acute Code(s): N39.0 - URINARY TRACT INFECTION, SITE NOT SPECIFIED (3) Parkinson's disease dementia Status: Acute Code(s): G20 - PARKINSON'S DISEASE; F02.80 - DEMENTIA IN OTH DISEASES CLASSD ELSWHR W/O BEHAVRL DISTURB (4) Parkinson's disease, Lewy body Status: Acute Code(s): G31.83 - DEMENTIA WITH LEWY BODIES (5) Myasthenia gravis Status: Acute Code(s): G70.00 - MYASTHENIA GRAVIS WITHOUT (ACUTE) EXACERBATION (6) General weakness Status: Acute Code(s): R53.1 - WEAKNESS (7) Hallucination Status: Acute Code(s): R44.3 - HALLUCINATIONS, UNSPECIFIED Plan: This patient is a 61-year-old right-handed white male who was brought into the emergency room with symptoms of recurrent urinary tract infection and generalized weakness. Patient has a complex past medical history which includes history of Parkinson's disease, Parkinson's dementia, and myasthenia gravis. According to his he has been very weak for the past 7 weeks at home. He has been unable to ambulate due to generalized weakness. He does have a history of myasthenia gravis mostly affecting his ocular muscles. He is on treatment for both his Parkinson's disease and is myasthenia gravis. He was evaluated at the movement disorder clinic at [facility] 5 years ago where his diagnosis was made. He has not had follow-up there for over a year. The patient does answer some simple questions. According to the he has been very weak for the past 7 weeks. He has had 3 urinary tract infections. This may worsen his Parkinson's condition due to the sepsis. He does ambulate at home with the use of a walker but has been bedbound due to worsening generalized weakness. The patient is taking Mestinon on a regular basis for his myasthenia gravis. He denies any episodes of double vision. He has been on Sinemet 25/100 one tablet 4 times a day. He is also on combination of Aricept and Namenda for treatment of his Parkinson's dementia. The patient has been having new symptoms of hallucinations over the last several years. He is taking Seroquel for this. He also recently was switched from Flexeril to baclofen. This is helped with some of his rigidity. He has not had any major falls according to the . He would benefit from a urology consultation for evaluation of his recurrent UTI. We would also recommend a consultation with Dr. La for possible inpatient rehab placement for this patient. The is in agreement. We will continue close neurological follow-up for this patient. His computed tomography scan of the brain revealed no acute intracranial abnormality. There was generalized white matter ischemic changes. We will continue close neurological follow-up of this patient during this admission. Would recommend aggressive treatment of the underlying urinary tract infection. Patient was seen by urology today. They're recommending KUB and renal ultrasound. We will make further recommendations. Patient also being considered for inpatient rehab placement. His overall condition and prognosis remains guarded. There is been no worsening of his underlying Parkinson's disease and Parkinson's dementia since admission. His overall prognosis at this time remains guarded. Time with Patient: Greater than 30
[2017-03-03] MEDS: BACLOFEN 10 MG TAB PO SCH ×2 (06:19→15:57)
[2017-03-03] MEDS: PARoxetine 20 MG TAB PO SCH ×2 (06:19→15:59)
[2017-03-03] MEDS: FLUTICASONE 50MCG/SPRAY NASAL 16GM EA NOSTRIL SCH (06:19)
[2017-03-03] MEDS: CARBIDOPA-LEVODOPA 25-100 MG 1 EACH TAB PO SCH ×3 (06:20→15:58)
[2017-03-03] MEDS: HYDROcodone/APAP 10-325MG 1 EACH TAB PO SCH ×3 (06:20→15:57)
[2017-03-03] MEDS: MEMANTINE 10 MG TAB PO SCH (06:20)
[2017-03-03] MEDS: IBUPROFEN 800 MG TAB PO SCH ×2 (06:20→16:03)
[2017-03-03] MEDS: PYRIDOSTIGMINE 60 MG TAB PO SCH ×3 (06:20→15:59)
[2017-03-03] MEDS: DOCUSATE 100 MG CAP PO SCH (06:20)
[2017-03-03] MEDS ORDERED: HYDROmorphone 1 MG/ML 1 ML SYRINGE IVP PRN (07:19)
[2017-03-03] MEDS ORDERED: ONDANSETRON 4 MG/2 ML VIAL IVP PRN (07:20)
[2017-03-03] MEDS: SODIUM CHLORIDE 0.9% 1,000 ML IV SCH ×2 (07:45→07:56)
[2017-03-03] MEDS: POLYETHYLENE GLYCOL 3350 17 GM POWD.PACK PO SCH (07:46)
[2017-03-03] MEDS: LACTOBACILLUS ACIDOPH & BULGAR 1 EACH PACKET PO SCH (07:56)
[2017-03-03 07:58] VITALS: RESP 16
[2017-03-03] MEDS: QUEtiapine 25 MG TAB PO SCH (07:58)
[2017-03-03 09:35] LABS: Appearance,Urine Clear (Clear); Bilirubin,Urine Negative (Negative); Glucose,Urine (UA) Negative (Negative); Ketones,Urine Negative (Negative); Leukocyte Esterase,Urine Negative (Negative); Nitrite,Urine Negative (Negative); Protein,Urine Negative (Negative); Specific Gravity,Urine 1.014 (1.001-1.035); UA Billing (MACRO vs. MICRO) CHEM; Urobilinogen,Urine <2.0 mg/dL (<2.0)
[2017-03-03] MEDS: LORazepam 0.5 MG TAB PO SCH ×2 (11:46→15:57)
[2017-03-03] MEDS: LORATADINE 10 MG TAB PO SCH (11:46)
[2017-03-03 15:43] VITALS: BP 152/92; PULSE 96; TEMP 97.7
[2017-03-03] MEDS: PROPRANOLOL LA 60 MG CAP.SA.24H PO SCH (15:58)
[2017-03-03] MEDS: MULTIVITAMINS, THERA 1 EACH TAB PO SCH (15:59)
[2017-03-03] MEDS ORDERED: LEVOFLOXACIN 750 MG TAB PO SCH (16:00)
--- NOTE | 2017-03-03 20:25 | P.PN ---
Subjective This patient is a 61-year-old male who has a known history of Parkinson's disease and myasthenia gravis. He was admitted with increasing weakness secondary to urinary tract infections. He was seen by neurology today recommended a KUB and renal ultrasound to be done. Postvoid residuals are to be checked as well. We will await further recommendations from urology. Patient underwent ultrasound of the bladder which came back negative. He also had a x-ray of the KUB which was negative for any acute findings. Patient continues to do about the same in terms of his Parkinson's condition. We did discuss with the yesterday the possibility of Lewy body dementia as associated with the Parkinson's condition. He was able to complete her EEG which was reviewed. His EEG revealed mild to moderate slowing consistent with his history of neurodegenerative disorder. Clinically he continues to do quite well in terms of his day-to-day functioning other than the generalized weakness. He is being considered for transfer to the inpatient rehab unit at [facility] later today. He is to continue on his current dose of Sinemet for treatment of the underlying Parkinson's disease. He will undergo PT /OT evaluation at the rehab unit which should be helpful for him. We will continue close neurological follow-up with the patient during this admission. Objective - Vital Signs Vital signs: Vital Signs Temp 97.7 F 03/03/17 15:00 Pulse 96 03/03/17 15:00 Resp 16 03/03/17 15:00 BP 152/92 03/03/17 15:00 Pulse Ox 95 03/03/17 15:00 Intake & Output 03/02/17 03/03/17 03/03/17 18:59 06:59 18:59 Intake Total 815 100 600 Balance 815 100 600 Weight 108.862 kg 108.862 kg Intake: Intake, IV Titration 375 600 Amount Sodium Chloride 0.9% 1, 375 600 000 ml @ 75 mls/hr IV . [id number] [facility] Rx#:[id number] Oral 440 100 Other: Voiding Method Diaper Diaper Diaper Incontinent Incontinent Incontinent # Voids 2 1 1 - Exam Physical examination: PHYSICAL EXAMINATION: Patient is resting comfortably in bed. VITAL SIGNS: Blood pressure is [152/92]. Heart rate is [96]. Respiration is [16] . Temperature is [97.7]. HEENT: Head is atraumatic, neck is supple, there were no carotid bruits. CHEST: Lungs are clear to auscultation and percussion. CARDIAC: S1, S2 normal rate and rhythm. There is no murmur. ABDOMEN: Soft and nontender. Bowel sounds are present. EXTREMITIES: There is no pedal edema. Peripheral pulses are present. Neurological examination: Patient's neurological examination is unchanged from yesterday. - Labs CBC & Chem 7: 02/28/17 13:18 02/28/17 13:18 Assessment and Plan (1) Parkinsons disease Status: Acute Code(s): G20 - PARKINSON'S DISEASE (2) Recurrent urinary tract infection Status: Acute Code(s): N39.0 - URINARY TRACT INFECTION, SITE NOT SPECIFIED (3) Parkinson's disease dementia Status: Acute Code(s): G20 - PARKINSON'S DISEASE; F02.80 - DEMENTIA IN OTH DISEASES CLASSD ELSWHR W/O BEHAVRL DISTURB (4) Parkinson's disease, Lewy body Status: Acute Code(s): G31.83 - DEMENTIA WITH LEWY BODIES (5) Myasthenia gravis Status: Acute Code(s): G70.00 - MYASTHENIA GRAVIS WITHOUT (ACUTE) EXACERBATION (6) General weakness Status: Acute Code(s): R53.1 - WEAKNESS (7) Hallucination Status: Acute Code(s): R44.3 - HALLUCINATIONS, UNSPECIFIED Plan: This patient is a 61-year-old right-handed white male who was brought into the emergency room with symptoms of recurrent urinary tract infection and generalized weakness. Patient has a complex past medical history which includes history of Parkinson's disease, Parkinson's dementia, and myasthenia gravis. According to his he has been very weak for the past 7 weeks at home. He has been unable to ambulate due to generalized weakness. He does have a history of myasthenia gravis mostly affecting his ocular muscles. He is on treatment for both his Parkinson's disease and is myasthenia gravis. He was evaluated at the movement disorder clinic at [facility] 5 years ago where his diagnosis was made. He has not had follow-up there for over a year. The patient does answer some simple questions. According to the he has been very weak for the past 7 weeks. He has had 3 urinary tract infections. This may worsen his Parkinson's condition due to the sepsis. He does ambulate at home with the use of a walker but has been bedbound due to worsening generalized weakness. The patient is taking Mestinon on a regular basis for his myasthenia gravis. He denies any episodes of double vision. He has been on Sinemet 25/100 one tablet 4 times a day. He is also on combination of Aricept and Namenda for treatment of his Parkinson's dementia. The patient has been having new symptoms of hallucinations over the last several years. He is taking Seroquel for this. He also recently was switched from Flexeril to baclofen. This is helped with some of his rigidity. He has not had any major falls according to the . He would benefit from a urology consultation for evaluation of his recurrent UTI. We would also recommend a consultation with Dr. La for possible inpatient rehab placement for this patient. The is in agreement. We will continue close neurological follow-up for this patient. His computed tomography scan of the brain revealed no acute intracranial abnormality. There was generalized white matter ischemic changes. We will continue close neurological follow-up of this patient during this admission. Would recommend aggressive treatment of the underlying urinary tract infection. Patient was seen by urology today. They're recommending KUB and renal ultrasound. This was completed yesterday and was negative for any acute changes. Ultrasound study also came back negative. Patient also being considered for inpatient rehab placement. He has been accepted for placement into the inpatient rehab unit at [facility]. His overall condition and prognosis remains guarded. There is been no worsening of his underlying Parkinson's disease and Parkinson's dementia since admission. His overall prognosis at this time remains guarded.
--- NOTE | 2017-03-04 11:49 | EEG ---
DATE OF SERVICE: 03/02/2017 ELECTROENCEPHALOGRAPHIC EXAMINATION REPORT INDICATION FOR EXAMINATION: This patient is a 61-year-old male with history of Parkinson's disease and Parkinson's dementia. Patient also has diagnosis of myasthenia gravis. Patient admitted with increased generalized weakness and confusion. Age: 61. EEG FINDINGS: A routine 21 channel awake, digital EEG recording was accomplished utilizing the 10-20 international system with bipolar and referential montages. The background activity in the most alert, resting state consists of a low to medium amplitude, fairly well developed and well sustained 6 Hz activity over the posterior head regions. This posterior rhythm attenuates to eye opening. There is a small amount of low amplitude 18-20 Hz beta activity seen maximally over the anterior head regions. Muscle and movement artifact was observed on a few occasions during the tracing. Hyperventilation was not performed. Photic stimulation at flash frequencies of 2 -30 Hz produced a minimal occipital driving response. No epileptiform discharges were seen. IMPRESSION: This EEG is moderately abnormal in diffuse fashion due to slowing of the EEG background. The EEG failed to reveal any focal, lateralized or epileptiform abnormalities. Clinical correlation is recommended. [facility]
== END 2017-03-03 19:53 | disposition home health service (06) | DRG 56 ==
LOC: EC 12:54 → 5MS5E 15:49 → OBSVTOIN 03-03 08:43
PROVIDERS: ADMIT Family Medicine; ATTEND Family Medicine
DX: G31.83 Neurocognitive disorder with Lewy bodies (principal); G70.01 Myasthenia gravis with (acute) exacerbation; R47.01 Aphasia; N39.0 Urinary tract infection, site not specified; R44.3 Hallucinations, unspecified; F02.80 Dementia in other diseases classified elsewhere, unspecified severity, without behavioral disturbance, psychotic disturbance, mood disturbance, and anxiety; R33.9 Retention of urine, unspecified; N39.498 Other specified urinary incontinence; M19.90 Unspecified osteoarthritis, unspecified site; N42.9 Disorder of prostate, unspecified; M21.371 Foot drop, right foot; I67.9 Cerebrovascular disease, unspecified; E66.9 Obesity, unspecified; I45.10 Unspecified right bundle-branch block; N36.8 Other specified disorders of urethra; F41.9 Anxiety disorder, unspecified; M62.89 Other specified disorders of muscle; I10 Essential (primary) hypertension; M48.00 Spinal stenosis, site unspecified; R26.9 Unspecified abnormalities of gait and mobility; F32.9 Major depressive disorder, single episode, unspecified; Z87.891 Personal history of nicotine dependence; Z79.899 Other long term (current) drug therapy; Z88.0 Allergy status to penicillin; Z86.59 Personal history of other mental and behavioral disorders; Z87.440 Personal history of urinary (tract) infections; Z71.3 Dietary counseling and surveillance; Z74.01 Bed confinement status; Z99.3 Dependence on wheelchair; Z79.1 Long term (current) use of non-steroidal anti-inflammatories (NSAID); Z79.891 Long term (current) use of opiate analgesic; Z79.51 Long term (current) use of inhaled steroids; Z90.49 Acquired absence of other specified parts of digestive tract; Z87.448 Personal history of other diseases of urinary system
CPT/HCPCS: 36415; 70450; 71020; 74000; 74230; 76770; 80053; 81003; 82550; 82553; 83735; 84100; 84439; 84443; 84481; 84484; 85025; 85610; 85730; 87086; 93005; 94760; 95816; 96365; 99285